=== PATIENT | female | born 1985 | race Caucasian/White ===

== ENCOUNTER 2019-12-26 21:35 | Inpatient (IN) | payer OTHER, SELFPAY ==
[2019-12-26] VITALS (40 sets, daily range): BP systolic 128–158; BP diastolic 73–120; PULSE 88–142; TEMP 36.3–36.4; O2SAT 98–100; BMI 30.2
[2019-12-26] MEDS: LACTATED RINGERS 1,000 ML 125 ML IV CONT ×2 (21:56→22:36)
[2019-12-26 22:06] LABS: Basophils Absolute Auto 0.1 K/mm3 (0.0-0.1); Basophils Percent Auto 0.5 % (0.2-1.2); Eosinophils Percent Auto 0.3 % (0-4.4); Hematocrit 38.2 % (37.0-47.0); Hemoglobin 12.9 g/dL (12.0-15.0); Immature Granulocyte Absolute 0.19 K/mm3 (0.00-0.031); Immature Granulocyte Percent A 1.5 % (0-0.5); Lymphocytes Percent Auto 16.4 % (18.3-44.2); Mean Corpuscular HGB Conc 33.8 g/dl (32-36); Mean Corpuscular Hemoglobin 30.9 pg (26-34); Mean Corpuscular Volume 91.4 fl (80-100); Mean Platelet Volume 12.3 fl (7.4-10.4); Monocytes Absolute Auto 0.7 K/mm3 (0.1-0.6); Monocytes Percent Auto 5.6 % (2.6-8.5); Neutrophils Absolute Auto 9.7 K/mm3 (1.3-6.7); Neutrophils Percent Auto 75.7 % (45.5-73.1); Platelet Count Result 201 k/mm3 (150-375); Red Blood Count 4.18 M/mm3 (4.2-5.4); Red Cell Distribution Width 12.4 % (11.5-14.5); White Blood Count 12.8 K/mm3 (4.5-10.0)
--- NOTE | 2019-12-26 23:15 | WPDOBADMIT ---
Obstetrics - Admit Note Admission Note: record reviewed. Additions to the history and/or subsequent changes in the physical findings follow. 34 y/o at 37 6/7 weeks here with contractions. Now comfortable with epidural. Had SROM just prior to my arrival. AVSS NST reactive TOCO: contractions every 2-3 min ABD soft, nontender, gravid, vertex EXT nontender Cervix 7-8/90/-1, gross ROM per RN. A: IUP at term with labor. P: Anticipate .
--- NOTE | 2019-12-26 23:40 | PM.OBPRVD ---
OB - Delivery Note Procedure Delivery date: 12/26/19 Procedure: Delivery monitor: external FHT and external uterine Route of delivery: Laceration description: None Specimen: Yes (cord blood) Estimated blood loss (mL): 47 Anesthesia type: Epidural Disposition: PACU Complications: None Narrative: 34 y/o at 37 6/7 weeks gestation who presented to the hospital with contractions. Labor was diagnosed. She received an epidural. She had spontaneous rupture of membranes with return of clear fluid. Her labor progressed rapidly and her cervix dilated completely. She pushed with good effort and delivered the infant's head to the perineum, followed by the body. The nose and mouth were bulb suctioned. After a delay, the cord was clamped and cut. The was handed off the field. Cord blood was collected. The placenta delivered spontaneously and was grossly normal in appearance. The usual 3 vessel cord was noted. The perineum was intact. The cervix was visualized and found to be free of laceration. Needle and instrument counts were correct. The patient was taken to recovery room in stable condition. The infant went to the nursery in stable condition. I was present and scrubbed for the entire delivery. [place] Baby Date of : 12/26/19 Time of : 23:23 Weeks of gestation at delivery: 37 gender: Male Weight (pounds): 6 Weight (ounces): 14 presentation: vertex position: Left Occiput Anterior Placenta delivery description: Spontaneous cord vessel description: 3 Vessels score one minute: 8 score five minutes: 8
[2019-12-27] VITALS (11 sets, daily range): BP systolic 122–150; BP diastolic 70–96; PULSE 57–85; RESP 16–18; TEMP 36.4–36.7; O2SAT 99
--- NOTE | 2019-12-27 01:17 | LDADM ---
This patient, Shanthi Richards, was admitted to Labor/Delivery/Recovery 104 on 12/26/19 at 21:35. Plans for labor, pain management and were discussed with patient. Patient/family oriented to hospital policies and general routines including ID bracelet, bed and alarms, visiting hours, pain management, procedures, bathroom and other care routines, personal items, smoking policy, room service/diet and guest tray routines, infant security routines, and visiting hours. Patient/Family are encouraged to report perceived risks to care and to ask questions if they do not understand what they are told or what they should do. See OBIX for further documentation.
--- NOTE | 2019-12-27 02:10 | OBPPTRN ---
Patient transferred to post room #292 via wheelchair - transferred to room 292 in crib. Support person present. Oriented to unit, room, information board, rooming in, admission packet and security measures. Patient verbalizes understanding.
[2019-12-27 05:44] LABS: Hematocrit 37.7 % (37.0-47.0); Hemoglobin 12.7 g/dL (12.0-15.0)
--- NOTE | 2019-12-27 06:51 | PM.OBPNVD ---
OB - PN: Subj Subjective Date/time seen: 12/27/19 06:51 Patient comments: no complaints and pain well controlled baby status: doing well and nursing well OB - PN: Obj Data Labs CBC & Chem 7: 12/27/19 05:34 Labs: Laboratory Results - last 24 hr 12/26/19 12/26/19 12/27/19 21:59 21:59 05:34 WBC 12.8 H RBC 4.18 L Hgb 12.9 12.7 Hct 38.2 37.7 MCV 91.4 MCH 30.9 MCHC 33.8 RDW 12.4 Plt Count 201 MPV 12.3 H Immature Gran % (Auto) 1.5 H Neut % (Auto) 75.7 H Lymph % (Auto) 16.[address] [place] % (Auto) 5.6 Eos % (Auto) 0.3 Baso % (Auto) 0.5 Lymph # (Auto) 2.10 [place] # (Auto) 0.7 H Eos # (Auto) 0.0 Baso # (Auto) 0.1 Abs Immat Gran (auto) 0.19 H Absolute Neuts (auto) 9.7 H Absolute Nucleated RBC 0.0 Nucleated RBC % 0.0 Blood Type AB Positive Antibody Screen Negative OB - PN A/P Plan day: 1 Plan: routine care Time Spent With Patient Time: Total time spent is greater than 50% in coordination of care (as documented) at patient's floor/unit and/or counseling patient: Time with patient: less than 15 minutes Review of Systems Review of Systems: All systems reviewed & are unremarkable except as noted in HPI and below Exam Const: General: no acute distress Eyes: General: appearance normal, both eyes and all related structures Neck: Neck: supple and no JVD Thyroid: thyroid normal Resp: Effort & Inspection: normal respiratory effort Auscultation: clear to auscultation bilaterally Cardio: Rate: regular rate Rhythm: regular rhythm GI: Inspection: normal to inspection (Fundus firm well below the umbilicus) : General: Yes bimanual renal exam normal bilaterally (Vaginal flow is sparse) Skin: General skin exam: no rashes or lesions noted Extrem: General: normal to inspection and no edema Psych: Mental Status: mental status grossly normal Affect: normal affect
[2019-12-27 06:54] LABS: Rapid Plasma Reagin Non-Reactive (NonReactive)
[2019-12-27] MEDS: MULTIVIT/MIN/PREN/FOL AC/IRON TABLET 1 TAB PO (08:14)
--- NOTE | 2019-12-27 10:25 | WPDANLDPN2 ---
Anes-Prog Note L&D Date/Time: 12/27/19 10:25 Neuro status: Neuro function grossly intact. Vital Signs: Last Vital Signs Temp 97.5 F L 12/27/19 07:50 Pulse 85 12/27/19 07:50 Resp 16 12/27/19 07:50 BP 128/76 12/27/19 07:50 Pulse Ox 99 12/27/19 07:50 I/O: Intake & Output 12/26/19 12/27/19 12/27/19 23:59 07:59 15:59 Intake Total 1000 Balance 1000 Patient feedback: Patient satisfied with anesthetic care.
--- NOTE | 2019-12-27 12:05 | PC.NURSE ---
Consulted with patient, mother called out for observation of latch. Reviewed infant feeding cues, frequencies, duration of feedings, feeding elimination flow sheet, and signs of adequate intake. Demonstrated stimulation techniques to wake for feeding. Reviewed positioning/alignment in cross cradle, holding breast in U hold and guided asymmetrical latch on. was able to latch correctly. Infant nursed eagerly, with steady draws and frequent swallowing noted. Reviewed signs of a correct latch, effective nursing and suck swallow ratio. Infant was able to maintain latch without discomfort to mother. Nipple care reviewed. Instructed mother to call out for RN assistance if she is unable to latch infant for feeding or she has discomfort with nursing. Instructed feeding should be initiated three hours from start of last feeding or if feeding cues are noted before. Mother voiced understanding of information shared.
--- NOTE | 2019-12-28 07:04 | P.DS_ITS ---
DS: Diagnosis Admitting Diagnosis Admitting Diagnosis: term DS: Summary Time Spent with Patient Time attestation: Total time spent providing and/or coordinating discharge services: Exam Const: General: no acute distress Eyes: General: appearance normal, both eyes and all related structures Neck: Neck: supple and no JVD Thyroid: thyroid normal Resp: Effort & Inspection: normal respiratory effort Auscultation: clear to auscultation bilaterally Cardio: Rate: regular rate Rhythm: regular rhythm GI: Inspection: non-distended GI Palp: Yes Soft to palpation, No Tenderness to palpation present (GI) and No Guarding due to palpation present (GI) A uscultation: normal bowel sounds : General: Yes bladder normal to palpation External Female Exam: normal external appearance Speculum Exam - Vagina: normal vaginal discharge and No vaginal bleeding Speculum Exam - Cervix: nontender Bimanual exam- vagina & uterus: bladder normal to palpation and No Cervical tenderness present OB/external & speculum: No vaginal bleeding Skin: General skin exam: no rashes or lesions noted Extrem: General: normal to inspection and no edema Psych: Mental Status: mental status grossly normal Affect: normal affect Discharge Plan Discharge Attending physician on discharge: Mauricio Ramirez Discharging Clinician: Mauricio Ramirez Patient Disposition: Home, Self-Care Activity: may shower, no straining, may drive after 2 weeks and pelvic rest Diet: regular Wound Care Instructions: follow printed instructions Discharge Instructions: Call or return if temperature above 100.4? F, increased abdominal pain, increased vaginal bleeding or any new problems. Stand Alone Forms: General Discharge Information Follow-up/Referrals: Mauricio Ramirez MD [Physician] - (6 weeks) Lex Rader MD [Physician] - Discharge Medications: New ibuprofen 600 mg tablet 600 mg PO Q6H PRN (Reason: cramps) Qty: 30 RF: 0 Continued PNV [id number] fumarate-FA [] 28 mg iron- 800 mcg Tablet 1 tablet PO DAILY RF: 0 Date of admission: 12/26/19 21:35 Primary Care Provider: Felipe Justice Admitting Provider: Mauricio Ramirez Attending physician on admission: Mauricio Ramirez
--- NOTE | 2019-12-28 07:05 | PM.OBPNVD ---
OB - PN: Subj Subjective Date/time seen: 12/28/19 07:05 Patient comments: no complaints and pain well controlled baby status: doing well and nursing well OB - PN: Obj Data Labs CBC & Chem 7: 12/27/19 05:34 OB - PN A/P Time Spent With Patient Time: Total time spent is greater than 50% in coordination of care (as documented) at patient's floor/unit and/or counseling patient: Review of Systems Review of Systems: All systems reviewed & are unremarkable except as noted in HPI and below Exam Const: General: no acute distress Eyes: General: appearance normal, both eyes and all related structures Neck: Neck: supple and no JVD Thyroid: thyroid normal Resp: Effort & Inspection: normal respiratory effort Auscultation: clear to auscultation bilaterally Cardio: Rate: regular rate Rhythm: regular rhythm GI: Inspection: non-distended GI Palp: Yes Soft to palpation, No Tenderness to palpation present (GI) and No Guarding due to palpation present (GI) Auscultation: normal bowel sounds : General: Yes bladder normal to palpation External Female Exam: normal external appearance Speculum Exam - Vagina: normal vaginal discharge and No vaginal bleeding Speculum Exam - Cervix: nontender Bimanual exam- vagina & uterus: bladder normal to palpation and No Cervical tenderness present OB/external & speculum: No vaginal bleeding Skin: General skin exam: no rashes or lesions noted Extrem: General: normal to inspection and no edema Psych: Mental Status: mental status grossly normal Affect: normal affect
[2019-12-28 08:25] VITALS: BP 131/81; PULSE 78; RESP 16; TEMP 36.6; O2SAT 99
[2019-12-28] MEDS: MULTIVIT/MIN/PREN/FOL AC/IRON TABLET 1 TAB PO (08:35)
--- NOTE | 2019-12-28 09:30 | PC.NURSE ---
Mother is able to independently latch infant with appropriate positioning/alignment. She denies any nipple discomfort, is feeding as required and waking to feed if needed. has had 9 effective feedings in the past 24 hours, and is currently meeting outcomes for weight, output, jaundice and feeding frequencies. Mother states she feels confident to continue effective at home. Reviewed transition to breast milk, signs of adequate intake, and engorgement/relief. Instructed to call ICP if intake/output less than required. Reviewed regular medications mother is taking. Information provided per Sammi. Reviewed community resources on the [facility] website and in the Mom/Baby guide. Information on outpatient services provided. Mother has no further questions at this time.
[2019-12-29 09:54] VITALS: BP 126/83; PULSE 91; RESP 16; TEMP 37.1
== END 2019-12-28 10:10 | disposition home or self-care (01) | DRG 807 ==
LOC: ANHLDR 23:40 → ANHOB2 12-27 02:14
PROVIDERS: Admitting Provider Obstetrics & Gynecology; PCP Family Medicine; Visit Provider Obstetrics & Gynecology
DX: O62.3 Precipitate labor (principal); Z37.0 Single live birth; Z3A.37 37 weeks gestation of pregnancy
CPT/HCPCS: 36415; 85014; 85018; 85025; 86592; 86850; 86900; 86901; A9270; J2590; J2795; J7120

== ENCOUNTER 2021-04-04 11:33 | Emergency (ER) | payer OTHER, SELFPAY ==
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
[2021-04-04] MEDS: HYDROmorphone HCL INJ (*CRX) 1 MG/ML SYR IM (11:55)
[2021-04-04] MEDS: ONDANSETRON HCL ODT 4 MG TABLET PO (11:55)
[2021-04-04 11:58] VITALS: BP 102/81; PULSE 88; RESP 17; TEMP 36.1; O2SAT 98
[2021-04-04 13:02] VITALS: BP 121/66; PULSE 94; RESP 12; O2SAT 99
== END 2021-04-04 13:03 | disposition home or self-care (01) ==
PROVIDERS: Emergency Provider Emergency Medicine; PCP Family Medicine
DX: S62.391A Other fracture of second metacarpal bone, left hand, initial encounter for closed fracture (principal); S62.393A Other fracture of third metacarpal bone, left hand, initial encounter for closed fracture; W23.0XXA Caught, crushed, jammed, or pinched between moving objects, initial encounter
CPT/HCPCS: 29125; 73130; 99284; A4565; A9270; J1170

== ENCOUNTER → 2021-11-10 01:02 | Outpatient (CLI) | payer OTHER, SELFPAY ==
[2021-11-11 02:02] LABS: SARS-CoV-2 RNA PCR Positive
== END ==
PROVIDERS: PCP Family Medicine; Visit Provider Physician Assistant Medical
DX: U07.1 COVID-19 (principal); R68.89 Other general symptoms and signs
CPT/HCPCS: C9803; U0003; U0005